=== PATIENT | male | born 1965 ===

== ENCOUNTER 2017-12-24 14:04 | Emergency (ER) | payer OTHER ==
[~2017-12-24] VITALS: Ht 165.1 cm; Wt 61.2 kg
[~2017-12-24 14:04] MED LIST: COZAAR100 MG PO; PARA LA PRESION
== END 2017-12-24 20:38 | disposition home or self-care (01) ==
LOC: ER 14:04
DX: E13.65 Other specified diabetes mellitus with hyperglycemia (principal)